=== PATIENT | male | born 1945 | race Caucasian/White ===

== ENCOUNTER → 2020-01-04 12:51 | Outpatient (CLI) | payer MEDICARE, SELFPAY | PROVIDERS: Visit Provider Physician Assistant | DX: R35.0 Frequency of micturition (principal) | CPT/HCPCS: 87086 ==

== ENCOUNTER 2020-11-16 22:25 | Emergency (ER) | payer MEDICARE, SELFPAY ==
[2020-11-16 22:36] VITALS: BP 196/108; PULSE 51; RESP 16; TEMP 36.4; O2SAT 98; BMI 29.0
--- NOTE | 2020-11-16 23:25 | ED.EXTPRO ---
HPI - Extremity Problem General Chief complaint: Extremity Problem,Nontraumatic Stated complaint: left hand index finger is swelling Time Seen by Provider: 11/16/20 23:24 Source: patient and family ( at bedside) Mode of arrival: Ambulatory Limitations: no limitations History of Present Illness HPI Narrative: This is a 75-year-old male comes to the emergency department complaint of of his index finger on his left hand swelling. He states it became significantly more swollen last 24 hours. There is a soft fluctuant area. Patient states they did soak it today which made it more swollen a little bit more quickly. No fevers, no chills. Patient has pain at the localized area but none radiating down the hand. He denies any other symptoms. Denies any allergies to medications. He does take medication for hypertension and dyslipidemia. He has had 1 prior episode that was similar and required removal of a portion of the fingernail for ingrown nail. He states this was many years ago. He states that he hangnail initially which he thinks may have started this episode. Related Data Home Medications Medication Instructions Recorded Confirmed atorvastatin 10 mg tablet 10 mg PO DAILY 02/19/19 01/04/20 lisinopril 40 mg tablet 40 mg PO DAILY 02/19/19 01/04/20 Previous Rx's Medication Instructions Recorded bacitracin 1 applic TOPICAL TID #14 g 11/17/20 cephalexin [Keflex] 500 mg PO QID #40 cap 11/17/20 Allergies Allergy/AdvReac Type Severity Reaction Status Date / Time No Known Drug Allergies Allergy Verified 01/04/20 12:35 Review of Systems Review of Systems ROS Unobtainable: All systems reviewed & are unremarkable except as noted in HPI and below Patient History Medical History (Updated 11/17/20 @ 00:07 by Aracelis Michelle DO) Dyslipidemia Hypertension Social History Smoking Status: Never smoker Smoking Status: Never smoker alcohol intake frequency: holidays/special occasions only Substance Use Type: does not use Exam Narrative Exam Narrative: GENERAL: Alert and oriented x three, well-nourished, well-appearing male in mild distress. HEENT: Head normocephalic, atraumatic, EOMI, pupils reactive, face symmetric, moist mucous membranes NECK: Supple, full range of motion EXTREMITIES: Normal range of motion, no clubbing. Patient has swelling of the distal 2nd finger on the left hand on the medial side, and extending onto the pad of the finger and just proximal to the nail. There is an area of fluctuance with what appears to be purulence fluid and a small amount of ecchymosis medially underneath the skin. The area is tender to touch. There is erythema extending almost to cm from the proximal edge of the nail towards the D IP. Patient has full range of motion. Does not have any other finger tenderness. Cap refills less than 2 seconds. Patient has normal sensation to touch.. Neurovascularly intact NEUROLOGICAL: Cranial nerves II through XII grossly intact. Moving all extremities SKIN: Warm, dry, no petechiae, no rashes or lesions otherwise noted. Initial Vital Signs Initial Vital Signs: Vital Signs Temperature 97.6 F 11/16/20 22:36 Pulse Rate 51 L 11/16/20 22:36 Respiratory Rate 16 11/16/20 22:36 Blood Pressure 196/108 H 11/16/20 22:36 Pulse Oximetry 98 11/16/20 22:36 Procedures Abscess I/D I&D #1: Site: hand (distal 2nd finger left hand) Side (if applicable): left Local Anesthetic: lidocaine 1% Amount of anesthesia used (mL): 0.5 Technique: incised with #11 blade Amount of fluid expressed (mL): 0.5 Irrigation: No Packing used?: none Course Orders Ordered: Discontinued Medications Cephalexin HCl (Cephalexin 250 Mg Capsule) 500 mg PO NOW ONE Stop: 11/16/20 23:59 Last Admin: 11/17/20 00:10 Dose: 500 mg Documented by: LISHA Lidocaine/Sodium Bicarbonate (Lido 1%/Sod Bicarb 8.4% (10ml) 10 Ml Syringe) 10 ml INJ NOW ONE Stop: 11/16/20 23:30 Last Admin: 11/16/20 23:35 Dose: 10 ml Documented by: LISHA Vital Signs Vital signs: Vital Signs - 8 hr 11/16/20 22:36 11/17/20 00:16 Temperature 97.6 F Pulse Rate 51 L 90 Respiratory Rate 16 16 Blood Pressure 196/108 H 189/72 H Pulse Oximetry 98 100 Discharge Plan Departure Patient Disposition: Home Clinical Impression: Paronychia Instructions: DI for Paronychia Activity Restrictions/Additional Instructions: Take antibiotics until completely gone. You may take Tylenol and or ibuprofen as needed for pain. Prescription sent to [facility], you can buy the antibiotic ointment over the counter. Make sure you fill your oral antibiotic prescription. Wound Care: Keep wound(s) clean and dry. Wash daily with soap and water only, Use a triple antibiotic ointment to the affected area 3 times daily Do not use over the counter products (alcohol or peroxide)on the wounds unless instructed by a physician. If wound condition worsens (increased/expanding redness, developing fluid blisters, or worsening pain), either contact your doctor for an urgent re-assessment , or return to the Emergency Department. Return to the Emergency Department for any new or worsening symptoms. Return if fever greater than 100.4 Fahrenheit, increased swelling, it is painful to flex or extend your finger, increasing pain or worsening symptoms such as increased discharge or spreading redness. Use warm compresses 3 times daily for 20 minutes to the affected area. Prescriptions: New cephalexin [Keflex] 500 mg capsule 500 mg PO QID Qty: 40 RF: 0 bacitracin 500 unit/gram ointment 1 applic topical TID Qty: 14 RF: 0 No Action atorvastatin 10 mg tablet 10 mg PO DAILY RF: 0 lisinopril 40 mg tablet 40 mg PO DAILY RF: 0
[2020-11-16] MEDS: LIDO 1%/SOD BICARB 8.4% (10ML) 10 ML SYRINGE INJ (23:35)
[2020-11-17] MEDS: cephALEXin 250 MG CAPSULE 500 MG PO (00:10)
[2020-11-17 00:16] VITALS: BP 189/72; PULSE 90; RESP 16; O2SAT 100
== END 2020-11-17 00:16 | disposition home or self-care (01) ==
PROVIDERS: Emergency Provider Emergency Medicine
DX: L03.012 Cellulitis of left finger (principal); I10 Essential (primary) hypertension; E78.5 Hyperlipidemia, unspecified
CPT/HCPCS: 10060; 99281; 99283

== ENCOUNTER 2023-01-11 17:14 | Emergency (ER) | payer OTHER, SELFPAY ==
[2023-01-11] VITALS (35 sets, daily range): BP systolic 160–232; BP diastolic 91–115; PULSE 67–82; RESP 17–25; TEMP 36.9; O2SAT 90–96; BMI 31.1
--- NOTE | 2023-01-11 17:34 | DI.US.S_ITS ---
PROCEDURE: US THYROID INDICATIONS: hx thyroid nodule, pain, hoarseness, planned thyroidectomy TECHNIQUE: Real-time scanning was performed of the thyroid gland, with image documentation. COMPARISON: None. FINDINGS: Right: Thyroid lobe measures 2.0 x 1.2 x 1.4 cm and is homogeneous in echotexture. Left: Thyroid lobe measures 3.6 x 2.3 x 1.2 cm, and is homogenous in echotexture. Nodule number: 1 Location: Right midpole Size: 0.9 x 0.7 x 0.7 cm. Composition: Predominantly solid Echogenicity: Isoechoic/hypoechoic Shape: wider than tall. Margins: Ill-defined Echogenic foci: Punctate Total points: 6 ACR TI-RADS category: 4 Nodule number: 2 Location: Inferior left thyroid Size: 2.4 x 1.7 x 2.0 cm. Composition: Cystic Echogenicity: Anechoic Shape: wider than tall. Margins: Smooth Echogenic foci: None Total points: 0 ACR TI-RADS category: 1 Nodule number: 3 Location: Left superior thyroid Size: 0.9 x 0.8 x 0.7 cm. Composition: Predominantly cystic Echogenicity: Isoechoic/hypoechoic Shape: wider than tall. Margins: Smooth Echogenic foci: None Total points: 0 ACR TI-RADS category: 1 IMPRESSION: 0.9 x 0.7 x 0.7 centimeter right midpole nodule TI-RADS 4. Recommend follow-up ultrasound. Dictated by: Agustin Ng M.D. on 01/11/2023 at 19:37 Approved by: Agustin Ng M.D. on 01/11/2023 at 19:43
--- NOTE | 2023-01-11 17:36 | ED_ITS ---
HPI - General Adult <Aracelis Michelle DO - Last Filed: 01/12/23 10:30> General Chief complaint: Upper Respiratory Symptoms Stated complaint: shooting pn in thyr and up into ear Time Seen by Provider: 01/11/23 17:24 Source: patient and family Mode of arrival: Ambulatory History of Present Illness HPI narrative: This is a 77-year-old male with history of hypertension, dyslipidemia and migraines. Patient takes lisinopril, atorvastatin Depakote daily. He presents today with increasing pain in his left neck that radiates to his ear. He is had about 10 episodes of pain he states today. He has had these before he has a known thyroid nodule which she states has been aspirated and he has a plan thyroidectomy for January 20 for recurrent thyroid nodule. Patient states continues to grow increasingly large. He is had aspiration and states it has not been found to be cancerous or have infection but keeps growing and become so large they plan to remove the left thyroid. Patient has seen ENT through [facility]. Patient states no fevers. No chills. He denies headache. He states pain radiates towards his ear. Resolves after a brief period of time. He is not taken anything for pain. And his notes some increased hoarseness and voice change. He has not have any trouble breathing he says but eating and drinking are painful and solid foods seem to stimulate his cough and irritated even more. He denies chest pain or shortness of breath. He denies nausea or vomiting. She denies any other GI or urinary symptoms. No numbness, tingling weakness in his extremities. No other dy sarthria or aphasia or speech changes. Patient states he has had ultrasound and his is able to show me from their MyChart on 11/16/2022 the right lobe was 5 x 1.7 x 1.9 cm with several spongiform nodules less than 1 cm main nodule was 3.2 cm x 1.9 x 2.2 was cystic and had enlarged from prior ultrasound. Patient is quite hypertensive he did take his medication today. Related Data Home Medications Medication Instructions Recorded Confirmed atorvastatin 10 mg tablet 10 mg PO DAILY 02/19/19 01/04/20 lisinopril 40 mg tablet 40 mg PO DAILY 02/19/19 01/04/20 Previous Rx's Medication Instructions Recorded bacitracin 500 unit/gram topical 1 applic topical TID #14 grams 11/17/20 ointment cephalexin 500 mg capsule (Keflex) 500 mg PO QID #40 caps 11/17/20 Allergies Allergy/AdvReac Type Severity Reaction Status Date / Time No Known Drug Allergies Allergy Verified 01/04/20 12:35 Review of Systems <Aracelis Michelle DO - Last Filed: 01/12/23 10:30> Review of Systems ROS Unobtainable: All systems reviewed & are unremarkable except as noted in HPI and below Patient History <Aracelis Michelle DO - Last Filed: 01/12/23 10:30> Medical History Dyslipidemia Hypertension Social History Smoking Status: Never smoker Smoking Status: Never smoker alcohol intake frequency: holidays/special occasions only Substance Use Type: does not use Exam <Aracelis Michelle DO - Last Filed: 01/12/23 10:30> Narrative Exam Narrative: GEN: well nourished, well appearing male, alert and oriented x 3, patient appears to be in mild distress. HEENT: Atraumatic, pupils are equal round reactive to light, extraocular movem ents are intact, nares are clear, TMs are clear with no fluid, there is no conjunctival pallor. Throat is clear without any exudates, erythema, tonsillar enlargement or uvular deviation, no facial droop. Patient has mildly enlarged thyroid on exam. HEART: Regular rate and rhythm without murmur, clicks, rubs. LUNGS:Lungs clear to auscultation, no wheezes, rales, crackles, chest moves symmetrically ABD:bowel sounds normal, soft, non-tender, no guarding, rebound, rigidity, no masses noted, no hepatosplenomegaly :No CVA tenderness MSCL: Non-tender, no muscle atrophy, muscles strength 5/5 upper and lower extremities, full range of motion, normal gait NEURO:CN 2-12 intact, sensation normal. SKIN: No rash, erythema or other skin changes. Initial Vital Signs Initial Vital Signs: Vital Signs Temperature 98.5 F 01/11/23 17:27 Pulse Rate 78 01/11/23 17:27 Respiratory Rate 17 01/11/23 17:27 Blood Pressure 232/115 H 01/11/23 17:27 Pulse Oximetry 95 01/11/23 17:27 Oxygen Delivery Method Room Air 01/11/23 17:27 <Clifford Sebastian DO - Last Filed: 01/11/23 21:33> Initial Vital Signs Initial Vital Signs: Vital Signs Temperature 98.5 F 01/11/23 17:27 Pulse Rate 78 01/11/23 17:27 Respiratory Rate 17 01/11/23 17:27 Blood Pressure 232/115 H 01/11/23 17:27 Pulse Oximetry 95 01/11/23 17:27 Oxygen Delivery Method Room Air 01/11/23 17:27 Course <Aracelis Michelle DO - Last Filed: 01/12/23 10:30> Orders Ordered: Discontinued Medications Morphine Sulfate (Morphine 2 Mg/Ml Inj) 2 mg IV NOW ONE Stop: 01/11/23 17:35 Last Admin: 01/11/23 19:03 Dose: 2 mg Documented By: AVE Ondansetron HCl (Ondansetron 4 Mg/2 Ml Inj) 4 mg IV Q6HR PRN PRN Reason: Nausea And Vomiting Oxycodone/Acetaminophen (Oxycodone/Apap 5/325 Prepack) 1 bottle MISC SEEINSTR ONE Stop: 01/11/23 21:10 Last Admin: 01/11/23 21:18 Dose: 1 bottle Documented By: AVE Vital Signs Vital signs: Vital Signs - 8 hr 01/11/23 17:27 01/11/23 17:47 01/11/23 18:00 Temperature 98.5 F Pulse Rate 78 77 Respiratory Rate 17 Blood Pressure 232/115 H 202/107 H Pulse Oximetry 95 94 Oxygen Delivery Method Room Air 01/11/23 18:00 01/11/23 18:15 01/11/23 18:15 Temperature Pulse Rate 80 80 Respiratory Rate 24 24 Blood Pressure 195/107 H Pulse Oximetry 95 94 Oxygen Delivery Method 01/11/23 18:30 01/11/23 18:30 01/11/23 18:45 Temperature Pulse Rate 82 Respiratory Rate 20 Blood Pressure 197/107 H 188/105 H Pulse Oximetry 94 Oxygen Delivery Method 01/11/23 18:45 01/11/23 19:00 01/11/23 19:00 Temperature Pulse Rate 81 80 Respiratory Rate 25 H 24 Blood Pressure 187/107 H Pulse Oximetry 93 93 Oxygen Delivery Method Room Air 01/11/23 19:05 01/11/23 19:05 01/11/23 19:10 Temperature Pulse Rate 81 78 Respiratory Rate 25 H 19 Blood Pressure 192/112 H Pulse Oximetry 93 93 Oxygen Delivery Method 01/11/23 19:10 01/11/23 19:15 01/11/23 19:15 Temperature Pulse Rate 78 Respiratory Rate 24 Blood Pressure 186/112 H 178/99 H Pulse Oximetry 91 Oxygen Delivery Method 01/11/23 19:20 01/11/23 19:20 01/11/23 19:25 Temperature Pulse Rate 78 Respiratory Rate 24 Blood Pressure 176/103 H 169/92 H Pulse Oximetry 92 Oxygen Delivery Method 01/11/23 19:25 01/11/23 19:30 01/11/23 19:30 Temperature Pulse Rate 76 76 Respiratory Rate 25 H 24 Blood Pressure 168/98 H Pulse Oximetry 91 91 Oxygen Delivery Method 01/11/23 19:35 01/11/23 19:35 01/11/23 19:40 Temperature Pulse Rate 75 Respiratory Rate 24 Blood Pressure 172/100 H 167/98 H Pulse Oximetry 92 Oxygen Delivery Method 01/11/23 19:40 01/11/23 19:45 01/11/23 19:45 Temperature Pulse Rate 75 74 Respiratory Rate 25 H 24 Blood Pressure 183/99 H Pulse Oximetry 91 92 Oxygen Delivery Method 01/11/23 19:50 01/11/23 19:50 01/11/23 19:55 Temperature Pulse Rate 74 Respiratory Rate 23 Blood Pressure 180/102 H 173/101 H Pulse Oximetry 90 L Oxygen Delivery Method 01/11/23 19:55 01/11/23 20:00 01/11/23 20:00 Temperature Pulse Rate 74 72 Respiratory Rate 23 24 Blood Pressure 161/91 H Pulse Oximetry 92 91 Oxygen Delivery Method 01/11/23 20:05 01/11/23 20:05 01/11/23 20:10 Temperature Pulse Rate 70 Respiratory Rate 23 Blood Pressure 161/92 H 165/98 H Pulse Oximetry 92 Oxygen Delivery Method 01/11/23 20:10 01/11/23 20:15 01/11/23 20:15 Temperature Pulse Rate 70 69 Respiratory Rate 24 24 Blood Pressure 169/102 H Pulse Oximetry 92 91 Oxygen Delivery Method 01/11/23 20:20 01/11/23 20:20 01/11/23 20:25 Temperature Pulse Rate 72 70 Respiratory Rate 24 24 Blood Pressure 173/102 H Pulse Oximetry 92 92 Oxygen Delivery Method 01/11/23 20:25 01/11/23 20:30 01/11/23 20:30 Temperature Pulse Rate 70 Respiratory Rate 23 Blood Pressure 183/108 H 178/94 H Pulse Oximetry 94 Oxygen Delivery Method 01/11/23 20:35 01/11/23 20:35 01/11/23 20:40 Temperature Pulse Rate 70 Respiratory Rate 23 Blood Pressure 176/96 H 175/97 H Pulse Oximetry 92 Oxygen Delivery Method 01/11/23 20:40 01/11/23 20:45 01/11/23 20:45 Temperature Pulse Rate 67 69 Respiratory Rate 23 Blood Pressure 174/102 H Pulse Oximetry 92 95 Oxygen Delivery Method 01/11/23 20:50 01/11/23 20:50 01/11/23 20:55 Temperature Pulse Rate 72 Respiratory Rate 24 Blood Pressure 160/94 H 170/97 H Pulse Oximetry 94 Oxygen Delivery Method 01/11/23 20:55 01/11/23 21:00 01/11/23 21:00 Temperature Pulse Rate 70 69 Respiratory Rate 24 18 Blood Pressure 188/107 H Pulse Oximetry 94 96 Oxygen Delivery Method 01/11/23 21:05 01/11/23 21:05 01/11/23 21:10 Temperature Pulse Rate 69 Respiratory Rate Blood Pressure 192/104 H 177/96 H Pulse Oximetry 94 Oxygen Delivery Method 01/11/23 21:10 01/11/23 21:15 01/11/23 21:15 Temperature Pulse Rate 68 69 Respiratory Rate Blood Pressure 184/94 H Pulse Oximetry 94 95 Oxygen Delivery Method 01/11/23 21:20 01/11/23 21:20 Temperature Pulse Rate 68 Respiratory Rate Blood Pressure 186/95 H Pulse Oximetry 96 Oxygen Delivery Method <Clifford Sebastian DO - Last Filed: 01/11/23 21:33> Orders Ordered: Discontinued Medications Morphine Sulfate (Morphine 2 Mg/Ml Inj) 2 mg IV NOW ONE Stop: 01/11/23 17:35 Last Admin: 01/11/23 19:03 Dose: 2 mg Documented By: RB Ondansetron HCl (Ondansetron 4 Mg/2 Ml Inj) 4 mg IV Q6HR PRN PRN Reason: Nausea And Vomiting Oxycodone/Acetaminophen (Oxycodone/Apap 5/325 Prepack) 1 bottle MISC SEEINSTR ONE Stop: 01/11/23 21:10 Last Admin: 01/11/23 21:18 Dose: 1 bottle Documented By: AVE Vital Signs Vital signs: Vital Signs - 8 hr 01/11/23 17:27 01/11/23 17:47 01/11/23 18:00 Temperature 98.5 F Pulse Rate 78 77 Respiratory Rate 17 Blood Pressure 232/115 H 202/107 H Pulse Oximetry 95 94 Oxygen Delivery Method Room Air 01/11/23 18:00 01/11/23 18:15 01/11/23 18:15 Temperature Pulse Rate 80 80 Respiratory Rate 24 24 Blood Pressure 195/107 H Pulse Oximetry 95 94 Oxygen Delivery Method 01/11/23 18:30 01/11/23 18:30 01/11/23 18:45 Temperature Pulse Rate 82 Respiratory Rate 20 Blood Pressure 197/107 H 188/105 H Pulse Oximetry 94 Oxygen Delivery Method 01/11/23 18:45 01/11/23 19:00 01/11/23 19:00 Temperature Pulse Rate 81 80 Respiratory Rate 25 H 24 Blood Pressure 187/107 H Pulse Oximetry 93 93 Oxygen Delivery Method Room Air 01/11/23 19:05 01/11/23 19:05 01/11/23 19:10 Temperature Pulse Rate 81 78 Respiratory Rate 25 H 19 Blood Pressure 192/112 H Pulse Oximetry 93 93 Oxygen Delivery Method 01/11/23 19:10 01/11/23 19:15 01/11/23 19:15 Temperature Pulse Rate 78 Respiratory Rate 24 Blood Pressure 186/112 H 178/99 H Pulse Oximetry 91 Oxygen Delivery Method 01/11/23 19:20 01/11/23 19:20 01/11/23 19:25 Temperature Pulse Rate 78 Respiratory Rate 24 Blood Pressure 176/103 H 169/92 H Pulse Oximetry 92 Oxygen Delivery Method 01/11/23 19:25 01/11/23 19:30 01/11/23 19:30 Temperature Pulse Rate 76 76 Respiratory Rate 25 H 24 Blood Pressure 168/98 H Pulse Oximetry 91 91 Oxygen Delivery Method 01/11/23 19:35 01/11/23 19:35 01/11/23 19:40 Temperature Pulse Rate 75 Respiratory Rate 24 Blood Pressure 172/100 H 167/98 H Pulse Oximetry 92 Oxygen Delivery Method 01/11/23 19:40 01/11/23 19:45 01/11/23 19:45 Temperature Pulse Rate 75 74 Respiratory Rate 25 H 24 Blood Pressure 183/99 H Pulse Oximetry 91 92 Oxygen Delivery Method 01/11/23 19:50 01/11/23 19:50 01/11/23 19:55 Temperature Pulse Rate 74 Respiratory Rate 23 Blood Pressure 180/102 H 173/101 H Pulse Oximetry 90 L Oxygen Delivery Method 01/11/23 19:55 01/11/23 20:00 01/11/23 20:00 Temperature Pulse Rate 74 72 Respiratory Rate 23 24 Blood Pressure 161/91 H Pulse Oximetry 92 91 Oxygen Delivery Method 01/11/23 20:05 01/11/23 20:05 01/11/23 20:10 Temperature Pulse Rate 70 Respiratory Rate 23 Blood Pressure 161/92 H 165/98 H Pulse Oximetry 92 Oxygen Delivery Method 01/11/23 20:10 01/11/23 20:15 01/11/23 20:15 Temperature Pulse Rate 70 69 Respiratory Rate 24 24 Blood Pressure 169/102 H Pulse Oximetry 92 91 Oxygen Delivery Method 01/11/23 20:20 01/11/23 20:20 01/11/23 20:25 Temperature Pulse Rate 72 70 Respiratory Rate 24 24 Blood Pressure 173/102 H Pulse Oximetry 92 92 Oxygen Delivery Method 01/11/23 20:25 01/11/23 20:30 01/11/23 20:30 Temperature Pulse Rate 70 Respiratory Rate 23 Blood Pressure 183/108 H 178/94 H Pulse Oximetry 94 Oxygen Delivery Method 01/11/23 20:35 01/11/23 20:35 01/11/23 20:40 Temperature Pulse Rate 70 Respiratory Rate 23 Blood Pressure 176/96 H 175/97 H Pulse Oximetry 92 Oxygen Delivery Method 01/11/23 20:40 01/11/23 20:45 01/11/23 20:45 Temperature Pulse Rate 67 69 Respiratory Rate 23 Blood Pressure 174/102 H Pulse Oximetry 92 95 Oxygen Delivery Method 01/11/23 20:50 01/11/23 20:50 01/11/23 20:55 Temperature Pulse Rate 72 Respiratory Rate 24 Blood Pressure 160/94 H 170/97 H Pulse Oximetry 94 Oxygen Delivery Method 01/11/23 20:55 01/11/23 21:00 01/11/23 21:00 Temperature Pulse Rate 70 69 Respiratory Rate 24 18 Blood Pressure 188/107 H Pulse Oximetry 94 96 Oxygen Delivery Method 01/11/23 21:05 01/11/23 21:05 01/11/23 21:10 Temperature Pulse Rate 69 Respiratory Rate Blood Pressure 192/104 H 177/96 H Pulse Oximetry 94 Oxygen Delivery Method 01/11/23 21:10 01/11/23 21:15 01/11/23 21:15 Temperature Pulse Rate 68 69 Respiratory Rate Blood Pressure 184/94 H Pulse Oximetry 94 95 Oxygen Delivery Method 01/11/23 21:20 01/11/23 21:20 Temperature Pulse Rate 68 Respiratory Rate Blood Pressure 186/95 H Pulse Oximetry 96 Oxygen Delivery Method Medical Decision Making <Aracelis Michelle, DO - Last Filed: 01/12/23 10:30> Lab Data 01/11/23 17:50 01/11/23 17:50 Labs: Lab Results 01/11/23 01/11/23 Range/Units 17:50 17:50 WBC 12.2 H (4.5-11.0) X10^3/uL RBC 5.73 (4.5-5.9) X10^6/uL Hgb 16.4 (13.5-17.5) g/dL Hct 48.3 (41-53) % MCV 84.2 (80-100) fL MCH 28.6 (26-34) PG MCHC 34.0 (30-36) % RDW 13.2 (11.6-14.8) % Plt Count 177 (150-400) X10^3/uL Neut % (Auto) 86.7 H (50-75) % Lymph % (Auto) 7.9 L (25-40) % [place] % (Auto) 5.0 (3-14) % Eos % (Auto) 0.1 L (2-4) % Baso % (Auto) 0.3 (0-2) % Neut # (Auto) 93935 H (2496-9110) /uL Lymph # (Auto) 1000 L (4377-2124) /uL [place] # (Auto) 600 (0-900) /uL Eos # (Auto) 0 (0-450) /uL Baso # (Auto) 0 (0-100) /uL Sodium 138 (137-145) mmol/L Potassium 3.9 (3.4-5.1) mmol/L Chloride 104 (98-107) mmol/L Carbon Dioxide 25 (22-32) mmol/L BUN 13 (9-20) mg/dL Creatinine 0.80 (0.66-1.25) mg/dL Estimated GFR > 60 (>60) mL/min BUN/Creatinine Ratio 16.3 (6-22) Glucose 107 (80-110) mg/dL Calcium 9.0 (8.4-10.2) mg/dL Total Bilirubin 1.7 H (0.2-1.3) mg/dL AST 22 (17-59) IU/L ALT 38 (<50) IU/L Alkaline Phosphatase 101 (38-126) U/L Total Creatine Kinase 64 (55-170) U/L CK-MB (CK-2) TNP CK-MB (CK-2) Rel Index TNP Troponin I < 0.012 (0.01-0.034) ng/mL Total Protein 7.2 (6.3-8.2) g/dL Albumin 4.1 (3.5-5.0) g/dL Globulin 3.1 (1.7-4.1) g/dL Albumin/Globulin Ratio 1.3 (1.0-2.8) Lipase 51 (23-300) U/L ECG Data Attestation: I personally reviewed and interpreted this ECG as follows: Prior ECG tracings: not available for review Interpretation: Sinus rhythm rate of 77 [place] 164 QRS of 94 and QTC of 448. Nonspecific. [facility] Narrative Medical decision making narrative: This is a 77-year-old male with known thyroid nodules that have been recurrent aspirated several times with increasing pain. Patient presents left neck pain radiating towards his ear. He is quite hypertensive initially. Vitals were repeated, labs including CBC, CMP, troponin and EKG were obtained. Patient does not have any acute neurologic changes, he does not have any headache. Discussed with patient pain could be from his known nodule but would be prudent to evaluate for other sources. He states it has been better after it has been aspirated. Patient signed out to Dr. Sebastian while awaiting workup, <Clifford Sebastian DO - Last Filed: 01/11/23 21:33> Lab Data Labs: Lab Results 01/11/23 01/11/23 Range/Units 17:50 17:50 WBC 12.2 H (4.5-11.0) X10^3/uL RBC 5.73 (4.5-5.9) X10^6/uL Hgb 16.4 (13.5-17.5) g/dL Hct 48.3 (41-53) % MCV 84.2 (80-100) fL MCH 28.6 (26-34) PG MCHC 34.0 (30-36) % RDW 13.2 (11.6-14.8) % Plt Count 177 (150-400) X10^3/uL Neut % (Auto) 86.7 H (50-75) % Lymph % (Auto) 7.9 L (25-40) % [place] % (Auto) 5.0 (3-14) % Eos % (Auto) 0.1 L (2-4) % Baso % (Auto) 0.3 (0-2) % Neut # (Auto) 56869 H (8001-2351) /uL Lymph # (Auto) 1000 L (1610-6243) /uL [place] # (Auto) 600 (0-900) /uL Eos # (Auto) 0 (0-450) /uL Baso # (Auto) 0 (0-100) /uL Sodium 138 (137-145) mmol/L Potassium 3.9 (3.4-5.1) mmol/L Chloride 104 (98-107) mmol/L Carbon Dioxide 25 (22-32) mmol/L BUN 13 (9-20) mg/dL Creatinine 0.80 (0.66-1.25) mg/dL Estimated GFR > 60 (>60) mL/min BUN/Creatinine Ratio 16.3 (6-22) Glucose 107 (80-110) mg/dL Calcium 9.0 (8.4-10.2) mg/dL Total Bilirubin 1.7 H (0.2-1.3) mg/dL AST 22 (17-59) IU/L ALT 38 (<50) IU/L Alkaline Phosphatase 101 (38-126) U/L Total Creatine Kinase 64 (55-170) U/L CK-MB (CK-2) TNP CK-MB (CK-2) Rel Index TNP Troponin I < 0.012 (0.01-0.034) ng/mL Total Protein 7.2 (6.3-8.2) g/dL Albumin 4.1 (3.5-5.0) g/dL Globulin 3.1 (1.7-4.1) g/dL Albumin/Globulin Ratio 1.3 (1.0-2.8) Lipase 51 (23-300) U/L MDM Narrative Medical decision making narrative: This is a 77-year-old male with known thyroid nodules that have been recurrent aspirated several times with increasing pain. Patient presents left neck pain radiating towards his ear. He is quite hypertensive initially. Vitals were repeated, labs including CBC, CMP, troponin and EKG were obtained. Patient does not have any acute neurologic changes, he does not have any headache. Discussed with patient pain could be from his known nodule but would be prudent to evaluate for other sources. He states it has been better after it has been aspirated. Patient signed out to Dr. Sebastian while awaiting workup, Dr Sebastian: Received turned over. Review patient's history and physical and workup up to this point. The thyroid ultrasound today does show a nodule that is 0.9 x 0.7 x 0.7 cm. This is smaller than the reported nodule from October. He already has an appointment to see ENT to have a partial thyroidectomy in approximately 10 days from now. Plan will be is to discharge home. Will provide pain medication for symptom control. He will contact his ENT doctor tomorrow for follow-up. He is no respiratory distress. He is able to tolerate secretions but it hurts for him to swallow. No indication for admission to hospital. He expressed understanding and agreement with plan. Discharge Plan Departure Patient Disposition: Home Clinical Impression: Cyst of thyroid Instructions: DI for Thyroid Nodule Activity Restrictions/Additional Instructions: Have recommend that tomorrow you contact your your nose and throat provider to discuss your progressively worsening symptoms today. I suspect that they will just try to control your symptoms to your surgery next Tuesday. Return to the emergency department for any new or worsening symptoms. Prescriptions: No Action atorvastatin 10 mg tablet 10 mg PO DAILY lisinopril 40 mg tablet 40 mg PO DAILY cephalexin [Keflex] 500 mg capsule 500 mg PO QID Qty: 40 0RF bacitracin 500 unit/gram ointment 1 applic topical TID Qty: 14 0RF Referrals: Miscellaneous,Doctor, MD [Primary Care Provider] - Stand Alone Forms: Patient Portal/API
[2023-01-11 18:11] LABS: Add Manual Diff / Slide Review NO; Basophils Absolute Auto 0 /uL (0-100); Basophils Percent Auto 0.3 % (0-2); Eosinophils Absolute Auto 0 /uL (0-450); Eosinophils Percent Auto 0.1 % (2-4); Hematocrit 48.3 % (41-53); Hemoglobin 16.4 g/dL (13.5-17.5); Lymphocytes Absolute Auto 1000 /uL (1100-4500); Lymphocytes Percent Auto 7.9 % (25-40); Mean Corpuscular Hemoglobin 28.6 PG (26-34); Mean Corpuscular Volume 84.2 fL (80-100); Monocytes Absolute Auto 600 /uL (0-900); Neutrophils Absolute Auto 10600 /uL (1500-7000); Neutrophils Percent Auto 86.7 % (50-75); Platelet Count 177 X10^3/uL (150-400); Red Blood Cell Count 5.73 X10^6/uL (4.5-5.9); Red Cell Distribution Width 13.2 % (11.6-14.8); White Blood Cell Count 12.2 X10^3/uL (4.5-11.0)
[2023-01-11 18:15] LABS: Alanine Aminotransferase 38 IU/L (<50); Albumin 4.1 g/dL (3.5-5.0); Albumin Globulin Ratio 1.3 (1.0-2.8); Alkaline Phosphatase 101 U/L (38-126); Aspartate Aminotransferase 22 IU/L (17-59); BUN Creatinine Ratio 16.3 (6-22); Bilirubin Total 1.7 mg/dL (0.2-1.3); Blood Urea Nitrogen 13 mg/dL (9-20); Carbon Dioxide 25 mmol/L (22-32); Chloride 104 mmol/L (98-107); Creatine Kinase 64 U/L (55-170); Estimated Glomerular Filt Rate > 60 mL/min (>60); Globulin 3.1 g/dL (1.7-4.1); Glucose 107 mg/dL (80-110); HEMOLYSIS < 15 (0-50); Lipase 51 U/L (23-300); Potassium 3.9 mmol/L (3.4-5.1); Sodium 138 mmol/L (137-145); Total Protein 7.2 g/dL (6.3-8.2)
[2023-01-11 18:26] LABS: Troponin I < 0.012 ng/mL (0.01-0.034)
[2023-01-11] MEDS: MORPHINE 2 MG/ML INJ IV (19:03)
[2023-01-11] MEDS: OXYCODONE/APAP 5/325 PREPACK 1 BOTTLE MISC (21:18)
== END 2023-01-11 21:26 | disposition home or self-care (01) ==
PROVIDERS: Emergency Medicine; Emergency Provider Emergency Medicine
DX: E04.1 Nontoxic single thyroid nodule (principal); I10 Essential (primary) hypertension; R07.9 Chest pain, unspecified
CPT/HCPCS: 36415; 76536; 80053; 82550; 83690; 84484; 85025; 93005; 96374; 99284; J2270

== ENCOUNTER → 2023-08-23 13:38 | Outpatient (CLI) | payer OTHER, SELFPAY ==
[2023-08-26 05:32] LABS: RPR Screen Non Reactive (Non Reactive)
== END ==
PROVIDERS: PCP Internal Medicine; Referring Provider Dermatology; Visit Provider Dermatology
DX: L40.4 Guttate psoriasis (principal)
CPT/HCPCS: 36415; 86592

== ENCOUNTER → 2023-10-27 14:35 | Outpatient (CLI) | payer OTHER, SELFPAY | LOC: LAB 14:38 | PROVIDERS: Psychiatry & Neurology Neurology; PCP Internal Medicine; Referring Provider Psychiatry & Neurology Neurology; Visit Provider Psychiatry & Neurology Neurology | DX: M79.2 Neuralgia and neuritis, unspecified (principal) | CPT/HCPCS: 36415 ==

== ENCOUNTER → 2024-01-31 10:57 | Outpatient (CLI) | payer OTHER, SELFPAY ==
[2024-01-31 12:47] LABS: Prostate Specific Antigen Scrn 3.58 ng/mL (0.1-4.0)
[2024-01-31 12:48] LABS: Thyroid Stimulating Hormone 1.25 uIU/mL (0.47-4.68)
== END ==
PROVIDERS: PCP Family Medicine; Referring Provider Family Medicine; Visit Provider Family Medicine
DX: Z12.5 Encounter for screening for malignant neoplasm of prostate (principal); E89.0 Postprocedural hypothyroidism
CPT/HCPCS: 36415; 84443; G0103

== ENCOUNTER → 2024-02-22 11:02 | Outpatient (CLI) | payer OTHER, SELFPAY ==
[2024-02-22 12:12] LABS: Alanine Aminotransferase 30 IU/L (<50); Albumin 3.9 g/dL (3.5-5.0); Albumin Globulin Ratio 1.9 (1.0-2.8); Alkaline Phosphatase 93 U/L (38-126); Aspartate Aminotransferase 20 IU/L (17-59); BUN Creatinine Ratio 18.1 (6-22); Bilirubin Total 0.6 mg/dL (0.2-1.3); Blood Urea Nitrogen 15 mg/dL (9-20); Calcium 8.9 mg/dL (8.4-10.2); Carbon Dioxide 27 mmol/L (22-32); Chloride 107 mmol/L (98-107); Cholesterol 152 mg/dL (140-199); Estimated Glomerular Filt Rate > 60 mL/min (>60); Globulin 2.1 g/dL (1.7-4.1); Glucose 88 mg/dL (80-110); HDL Cholesterol 34 mg/dL (40-60); HEMOLYSIS < 15 (0-50); LDL Cholesterol Calculated 84 mg/dL (<100); Potassium 4.1 mmol/L (3.4-5.1); Sodium 139 mmol/L (137-145); Triglycerides 171 mg/dL (35-150)
== END ==
PROVIDERS: PCP Family Medicine; Referring Provider Dermatology; Visit Provider Dermatology
DX: L40.0 Psoriasis vulgaris (principal); E89.0 Postprocedural hypothyroidism; E78.5 Hyperlipidemia, unspecified; I10 Essential (primary) hypertension
CPT/HCPCS: 36415; 80053; 80061; 86480

== ENCOUNTER → 2024-05-19 13:33 | Outpatient (CLI) | payer OTHER, SELFPAY | PROVIDERS: PCP Family Medicine; Visit Provider Registered Nurse | DX: M25.461 Effusion, right knee (principal) | CPT/HCPCS: 87070; 87075; 87205 ==

== ENCOUNTER → 2024-12-20 13:09 | Outpatient (CLI) | payer MEDICARE, SELFPAY ==
--- NOTE | 2024-12-20 13:10 | DI.US.S_ITS ---
PROCEDURE: US THYROID INDICATIONS: History of thyroid nodules, patient reports prior left thyroidectomy 01/20/23 at a hospital in [place]. TECHNIQUE: Real-time scanning was performed of the remaining right thyroid gland, with image documentation. COMPARISON: [facility], [place], US THYROID, 01/11/2023, 17:59. FINDINGS: Thyroid: Right lobe measures 1.9 x 1.5 x 4.6 cm. Left lobe is absent. Isthmus is 3.0 mm thick. Echotexture is generally homogeneous with a single identified right mid thyroid nodule meeting criteria for sonographic assessment. Nodule number: 1 Location: Middle 3rd right thyroid lobe Size: 1.7 x 0.7 x 0.8 cm, averaging 1.1 cm. Composition: Solid Echogenicity: Hypoechoic Shape: wider than tall. Margins: Smoothly marginated Echogenic foci: Punctate echogenic foci Total points: 7.0 ACR TI-RADS category: Category 5, with recommendation of fine needle aspiration biopsy. IMPRESSION: Highly suspicious solid nodule middle 3rd right thyroid lobe. The average dimension is 1.1 cm and recommendation is to proceed to fine needle aspiration biopsy for this patient. ACR TI-RADS definitions and recommendations: TI-RADS 1 (benign): 0 points. FNA not needed. TI-RADS 2 (not suspicious): 2 points. FNA not needed. TI-RADS 3: 3 points. * FNA if 2.5 cm or larger, follow up if 1.5 cm or larger (at 1, 3, and 5 years). TI-RADS 4: 4-6 points. * FNA if 1.5 cm or larger, follow up if 1 cm or larger (at 1, 2, 3, and 5 years). TI-RADS 5: 7 points or more. * FNA if 1 cm or larger, follow up if 0.5 cm or larger (every year for 5 years). Dictated by: Diogo Lorenz M.D. on 12/21/2024 at 14:10 Approved by: Diogo Lorenz M.D. on 12/21/2024 at 14:16
== END ==
PROVIDERS: PCP Family Medicine; Referring Provider Family Medicine; Visit Provider Family Medicine
DX: E04.1 Nontoxic single thyroid nodule (principal); E89.0 Postprocedural hypothyroidism
CPT/HCPCS: 76536

== ENCOUNTER → 2025-02-11 13:10 | Outpatient (CLI) | payer MEDICARE, SELFPAY ==
--- NOTE | 2025-02-11 13:12 | DI.US.S_ITS ---
PROCEDURE: US THYROID INDICATIONS: Thyroid nodule TECHNIQUE: Real-time scanning was performed of the thyroid gland, with image documentation. COMPARISON: [facility], US, US THYROID, 12/20/2024, 13:53. FINDINGS/IMPRESSION: Real-time sonographic evaluation of the right thyroid nodule demonstrates a spongiform nodule, which is benign. The echogenic foci noted within the nodule in the prior ultrasound is located within tiny cystic spaces, most consistent with colloid. TI-RADS 1 (benign); no further follow-up is indicated. Dictated by: Gume Craven M.D. on 02/11/2025 at 14:45 Approved by: Gume Craven M.D. on 02/11/2025 at 14:46
== END ==
PROVIDERS: PCP Family Medicine; Referring Provider Family Medicine; Visit Provider Family Medicine
DX: E04.1 Nontoxic single thyroid nodule (principal)
CPT/HCPCS: 76536

== ENCOUNTER → 2025-02-25 07:49 | Outpatient (CLI) | payer MEDICARE, SELFPAY ==
[2025-02-25 08:57] LABS: Add Manual Diff / Slide Review NO; Basophils Absolute Auto 0 /uL (0-100); Basophils Percent Auto 0.4 % (0-2); Eosinophils Absolute Auto 100 /uL (0-450); Eosinophils Percent Auto 1.4 % (2-4); Hematocrit 46.4 % (41-53); Hemoglobin 15.8 g/dL (13.5-17.5); Lymphocytes Absolute Auto 1200 /uL (1100-4500); Mean Corpuscular HGB Conc 34.1 % (30-36); Mean Corpuscular Hemoglobin 29.3 PG (26-34); Mean Corpuscular Volume 85.8 fL (80-100); Monocytes Absolute Auto 600 /uL (0-900); Monocytes Percent Auto 7.2 % (3-14); Neutrophils Absolute Auto 6800 /uL (1500-7000); Platelet Count 155 X10^3/uL (150-400); Red Blood Cell Count 5.41 X10^6/uL (4.5-5.9); Red Cell Distribution Width 13.6 % (11.6-14.8); White Blood Cell Count 8.9 X10^3/uL (4.5-11.0)
[2025-02-25 09:09] LABS: Alanine Aminotransferase 35 IU/L (<50); Alkaline Phosphatase 95 U/L (38-126); Aspartate Aminotransferase 24 IU/L (17-59); BUN Creatinine Ratio 17.9 (6-22); Bilirubin Total 1.5 mg/dL (0.2-1.3); Blood Urea Nitrogen 17 mg/dL (9-20); Calcium 9.1 mg/dL (8.4-10.2); Carbon Dioxide 23 mmol/L (22-32); Chloride 107 mmol/L (98-107); Cholesterol 141 mg/dL (140-199); Estimated Glomerular Filt Rate > 60 mL/min (>60); Glucose 96 mg/dL (70-99); HDL Cholesterol 30 mg/dL (40-60); HEMOLYSIS < 15 (0-50); LDL Cholesterol Calculated 92 mg/dL (<100); Potassium 4.1 mmol/L (3.4-5.1); Sodium 138 mmol/L (137-145); Triglycerides 96 mg/dL (35-150)
[2025-02-25 09:40] LABS: TSH w/ Reflex to FT4 1.83 uIU/mL (0.47-4.68)
== END ==
PROVIDERS: PCP Family Medicine; Referring Provider Family Medicine; Visit Provider Family Medicine
DX: E78.5 Hyperlipidemia, unspecified (principal); I10 Essential (primary) hypertension; E04.1 Nontoxic single thyroid nodule; Z13.29 Encounter for screening for other suspected endocrine disorder
CPT/HCPCS: 36415; 80053; 80061; 84443; 85025

== ENCOUNTER → 2025-04-26 11:29 | Outpatient (CLI) | payer MEDICARE, SELFPAY ==
[2025-04-26 12:22] LABS: Add Manual Diff / Slide Review NO; Hematocrit 45.9 % (41-53); Hemoglobin 15.7 g/dL (13.5-17.5); Lymphocytes Absolute Auto 1600 /uL (1100-4500); Mean Corpuscular HGB Conc 34.1 % (30-36); Mean Corpuscular Hemoglobin 29.5 PG (26-34); Mean Corpuscular Volume 86.4 fL (80-100); Platelet Count 201 X10^3/uL (150-400)
[2025-04-26 12:49] LABS: Alanine Aminotransferase 36 IU/L (<50); Albumin 4.0 g/dL (3.5-5.0); Albumin Globulin Ratio 1.7 (1.0-2.8); Alkaline Phosphatase 95 U/L (38-126); Blood Urea Nitrogen 20 mg/dL (9-20); Calcium 9.0 mg/dL (8.4-10.2); Carbon Dioxide 23 mmol/L (22-32); Chloride 106 mmol/L (98-107); Estimated Glomerular Filt Rate > 60 mL/min (>60); Globulin 2.4 g/dL (1.7-4.1); Glucose 94 mg/dL (70-99); HEMOLYSIS < 15 (0-50); Potassium 4.2 mmol/L (3.4-5.1); Sodium 139 mmol/L (137-145); Total Protein 6.4 g/dL (6.3-8.2)
[2025-04-29 21:07] LABS: QuantiFERON Mitogen Value >10.00 IU/mL (.); QuantiFERON Nil Value 0.05 IU/mL (.); QuantiFERON TB Gold Plus Negative (Negative); QuantiFERON TB1 Ag Value 0.06 IU/mL (.); QuantiFERON TB2 Ag Value 0.07 IU/mL (.)
== END ==
PROVIDERS: PCP Family Medicine; Referring Provider Dermatology; Visit Provider Dermatology
DX: L40.8 Other psoriasis (principal); Z79.899 Other long term (current) drug therapy
CPT/HCPCS: 36415; 80053; 85025; 86480

== ENCOUNTER → 2025-09-04 13:34 | Outpatient (CLI) | payer MEDICARE, SELFPAY ==
[2025-09-04 14:18] LABS: Alanine Aminotransferase 41 IU/L (<50); Albumin 4.5 g/dL (3.5-5.0); Albumin Globulin Ratio 1.7 (1.0-2.8); Alkaline Phosphatase 93 U/L (38-126); Blood Urea Nitrogen 17 mg/dL (9-20); Calcium 9.5 mg/dL (8.4-10.2); Carbon Dioxide 25 mmol/L (22-32); Chloride 104 mmol/L (98-107); Estimated Glomerular Filt Rate > 60 mL/min (>60); Globulin 2.6 g/dL (1.7-4.1); Glucose 92 mg/dL (70-99); HEMOLYSIS 23 (0-50); Potassium 4.6 mmol/L (3.4-5.1); Sodium 140 mmol/L (137-145); Total Protein 7.1 g/dL (6.3-8.2)
[2025-09-04 15:25] LABS: Thyroid Stimulating Hormone 2.00 uIU/mL (0.47-4.68)
== END ==
PROVIDERS: PCP Family Medicine; Referring Provider Physician Assistant; Visit Provider Physician Assistant
DX: Z12.5 Encounter for screening for malignant neoplasm of prostate (principal); E03.9 Hypothyroidism, unspecified; R60.9 Edema, unspecified
CPT/HCPCS: 36415; 80053; 84443; G0103